=== PATIENT | female | born 1980 | race Two or more races ===

== ENCOUNTER 2018-10-29 16:19 | Emergency (ER) | payer BC ==
[~2018-10-29] VITALS: Ht 152.4 cm; Wt 48.1 kg
[2018-10-29 16:33] VITALS: BP 135/85
--- NOTE | 2018-10-29 18:43 | NUR ---
Patient discharged to home in stable condition. Written and verbal after care instructions given. Patient verbalizes understanding of instruction.
== END 2018-10-29 18:44 | disposition home or self-care (01) ==
LOC: ER 16:21
DX: R76.11 Nonspecific reaction to tuberculin skin test without active tuberculosis (principal)
CPT/HCPCS: 71045-TC